=== PATIENT | male | born 1990 | race African-American/Black ===

== ENCOUNTER 2017-11-26 22:18 | Emergency (ER) | payer SELFPAY ==
--- NOTE | 2017-11-26 22:43 | EDM.PDOC ---
ED HPI GENERAL MEDICAL PROBLEM - General Chief Complaint: ENT Problem Stated Complaint: TOOTH PAIN Time Seen by Provider: 11/26/17 22:36 Source of Information: Reports: Patient History Limitations: Reports: No Limitations - History of Present Illness INITIAL COMMENTS - FREE TEXT/NARRATIVE: The patient presents with right upper jaw tooth pain. This has been going on for a few weeks. The pain will come and go. It has been constant for a couple days. He has no fever or chills. He has no dentist in town. Onset: Gradual Duration: Week(s): (2) Location: Reports: Other (dental pain) Quality: Reports: Sharp Severity: Moderate Improves with: Reports: None Worsens with: Reports: None Associated Symptoms: Reports: No Other Symptoms Tooth/Teeth Pain Score (Numeric/FACES): 9 - Related Data Allergies Allergy/AdvReac Type Severity Reaction Status Date / Time No Known Allergies Allergy Verified 11/26/17 22:28 Home Meds: Home Meds Elviteg/Rosette/Emtric/Tenofo Ala [Genvoya Tablet] 1 each PO DAILY 11/26/17 [ History] Past Medical History - Past Health History Medical/Surgical History: Denies Medical/Surgical History Social & Family History - Family History Family Medical History: Noncontributory - Tobacco Use Smoking Status *Q: Current Every Day Smoker Years of Tobacco use: 15 Packs/Tins Daily: 0.5 - Caffeine Use Caffeine Use: Reports: Coffee, Energy Drinks, Soda - Recreational Drug Use Recreational Drug Use: No ED ROS ENT - Review of Systems Review Of Systems: See Below Constitutional: Reports: No Symptoms HEENT: Reports: Dental Pain Respiratory: Reports: No Symptoms Cardiovascular: Reports: No Symptoms Endocrine: Reports: No Symptoms GI/Abdominal: Reports: No Symptoms : Reports: No Symptoms Musculoskeletal: Reports: No Symptoms ED EXAM, ENT - Physical Exam Exam: See Below Exam Limited By: No Limitations General Appearance: Alert, No Apparent Distress Ears: Normal External Exam Nose: Normal Inspection Mouth/Throat: Dental Abcess, Dental Pain, Other (Pain upon palpation with edema and erythema to the right upper gum line at the 1st molar) Head: Atraumatic, Normocephalic Neck: Normal Inspection, Supple, Non-Tender Respiratory/Chest: No Respiratory Distress Course - Vital Signs Last Recorded V/S: Last Vital Signs Temp 97.7 F 11/26/17 22:29 Pulse 71 11/26/17 22:29 Resp 16 11/26/17 22:29 BP 145/97 H 11/26/17 22:29 Pulse Ox 100 11/26/17 22:29 Departure - Departure Time of Disposition: 22:45 Disposition: Home, Self-Care 01 Condition: Good Clinical Impression: Dental abscess, Dental caries, Pain, dental - Discharge Information *PRESCRIPTION DRUG MONITORING PROGRAM REVIEWED*: No *COPY OF PRESCRIPTION DRUG MONITORING REPORT IN PATIENT DELVIS: No Referrals: PCP,Not In Area [Primary Care Provider] - Additional Instructions: Take the medication as prescribed. Follow up with a dentist in town. Please return if you are worse.
== END 2017-11-26 22:50 | disposition home or self-care (01) ==
LOC: JD.ED 22:18
DX: K04.7 Periapical abscess without sinus (principal); K02.9 Dental caries, unspecified; F17.210 Nicotine dependence, cigarettes, uncomplicated
CPT/HCPCS: 99283

== ENCOUNTER 2018-06-13 11:17 | Emergency (ER) | payer BC ==
--- NOTE | 2018-06-13 11:46 | EDM.PDOC ---
ED HPI GENERAL MEDICAL PROBLEM - General Chief Complaint: General Stated Complaint: MEDICATION REFILL Time Seen by Provider: 06/13/18 11:38 Source of Information: Reports: Patient History Limitations: Reports: No Limitations - History of Present Illness INITIAL COMMENTS - FREE TEXT/NARRATIVE: 28-year-old male presents to the ED for a refill of his antiviral medications that he takes for his HIV infection. He was diagnosed with HIV in January 2016. He was started on antiviral medication at that time. His CD4 count apparently came under excellent control. He's had troubles getting his medications filled due to the cost. It costs nearly $2700 a month for current Genvoya tablet once daily. He has moved here from [place] to work in the [employer] field. He is asymptomatic with no cough fever chills etc. I will have his white count checked and CD4 count checked. He is essentially here for medication refill Onset: Other (Diagnosed with HIV infection January 2016) Duration: Chronic Location: Reports: Other (HIV positive. Asymptomatic) Quality: Reports: Other (None.) Improves with: Reports: None Worsens with: Reports: None Context: Reports: Other (HIV positive since January 2016). 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: Reports: Other (see below) - Related Data Allergies Allergy/AdvReac Type Severity Reaction Status Date / Time No Known Allergies Allergy Verified 06/13/18 11:26 Home Meds: Home Meds Elviteg/Rosette/Emtric/Tenofo Ala [Genvoya Tablet] 1 each PO DAILY 11/26/17 [ History] Elviteg/Rosette/Emtric/Tenofo Ala [Genvoya Tablet] 1 each PO DAILY #30 tablet 06/13 [Rx] Past Medical History - Past Health History Medical/Surgical History: Denies Medical/Surgical History - Infectious Disease History Infectious Disease History: Reports: HIV-Human Immunodeficiency Virus ( Diagnosed in January 2016 and he's been on retroviral therapy since. He has missed a couple of months of treatment due to being without enough funds to afford the medication. Has been off the current treatment with Genvoya which contains 4 different antiviral retroviral medications. For the last month. He is here to essentially get it filled since he has money.) Social & Family History - Family History Family Medical History: Noncontributory - Tobacco Use Smoking Status *Q: Current Every Day Smoker Years of Tobacco use: 20 Packs/Tins Daily: 0.5 - Caffeine Use Caffeine Use: Reports: Energy Drinks - Alcohol Use Days Per Week of Alcohol Use: 0 - Recreational Drug Use Recreational Drug Use: No - Living Situation & Occupation Living situation: Reports: Single ED ROS GENERAL - Review of Systems Review Of Systems: See Below Constitutional: Denies: Fever, Chills, Malaise, Weakness, Fatigue, Decreased Appetite, Weight Loss HEENT: Reports: No Symptoms Respiratory: Reports: No Symptoms Cardiovascular: Reports: No Symptoms Endocrine: Reports: No Symptoms GI/Abdominal: Reports: No Symptoms : Reports: No Symptoms Musculoskeletal: Reports: No Symptoms Skin: Reports: No Symptoms, Other Psychiatric: Reports: No Symptoms Hematologic/Lymphatic: Reports: No Symptoms Immunologic: Reports: Other (Patient has HIV infection.) ED EXAM, GENERAL - Physical Exam Exam: See Below Exam Limited By: No Limitations General Appearance: Alert, WD/WN, No Apparent Distress Eye Exam: Bilateral Eye: Normal Inspection Throat/Mouth: Normal Inspection, Normal Lips, Normal Oropharynx Head: Atraumatic, Normocephalic Neck: Normal Inspection, Supple, Non-Tender, Full Range of Motion. No: Lymphadenopathy (L), Lymphadenopathy (R) Respiratory/Chest: No Respiratory Distress, Lungs Clear, Normal Breath Sounds, No Accessory Muscle Use Cardiovascular: Normal Peripheral Pulses, Regular Rate, Rhythm, No Edema, No Gallop, No Murmur, No Rub Peripheral Pulses: 0: Popliteal (L) Course - Vital Signs Last Recorded V/S: Last Vital Signs Temp 36.7 C 06/13/18 11:27 Pulse 76 06/13/18 11:27 Resp 16 06/13/18 11:27 BP 154/97 H 06/13/18 11:27 Pulse Ox 100 06/13/18 11:27 - Orders/Labs/Meds Labs: Laboratory Tests 06/13/18 Range/Units 11:51 WBC 4.66 (4.23-9.07) K/mm3 RBC 5.23 (4.63-6.08) M/mm3 Hgb 14.6 (13.7-17.5) gm/L Hct 40.9 (40.1-51.0) % MCV 78.2 L (79.0-92.2) fl MCH 27.9 (25.7-32.2) pg MCHC 35.7 H (32.2-35.5) g/dl RDW Std Deviation 43.3 (35.1-43.9) fL Plt Count 209 (163-337) K/mm3 MPV 9.5 (9.4-12.3) fl Neutrophils % (Manual) 56 (40-60) % Band Neutrophils % 0 (0-10) % Lymphocytes % (Manual) 33 (20-40) % Atypical Lymphs % 0 % Monocytes % (Manual) 10 (2-10) % Eosinophils % (Manual) 1 (0.8-7.0) % Basophils % (Manual) 0 L (0.2-1.2) Platelet Estimate Adequate RBC Morph Comment Normal - Radiology Interpretation Free Text/Narrative:: 28-year-old male presents to the ED primarily for refill of his antiviral/ retroviral medications for HIV infection. He was diagnosed with HIV the end of January 2016. He's been on antiviral medications/retroviral medication for most of this time. He has been without medication a couple of months because of lack of funds to purchase medication. He is currently on genvoya--a combination of 4 different medications. Takes 1 tablet once daily. He states it's safe to resume even though he's been off of it for a month. Plan CBC to be done with CD4 count to be sent out. I will refill his medication for the next 4 months. 1 tablet once daily Departure - Departure Time of Disposition: 12:00 Disposition: Home, Self-Care 01 Condition: Fair Clinical Impression: HIV (human immunodeficiency virus infection) Qualifiers: HIV symptom status: asymptomatic Qualified Code(s): Z21 - Asymptomatic human immunodeficiency virus [HIV] infection status - Discharge Information *PRESCRIPTION DRUG MONITORING PROGRAM REVIEWED*: Not Applicable *COPY OF PRESCRIPTION DRUG MONITORING REPORT IN PATIENT DELVIS: Not Applicable Prescriptions: Elviteg/Rosette/Emtric/Tenofo Ala [Genvoya Tablet] 1 each PO DAILY #30 tablet Referrals: PCP,None [Primary Care Provider] - Forms: ED Department Discharge Additional Instructions: Evaluation the emergency room today in regards to known HIV infection and need for refill of antiviral medication Genvoya. Labs will be drawn today and CD4 count will be available in about 3-4 days. Tentatively someone will call from the department with the results when they become available likely Friday or next week. I have refilled her medication for the next 4 months
== END 2018-06-13 12:05 | disposition home or self-care (01) ==
LOC: JD.ED 11:17
DX: Z21 Asymptomatic human immunodeficiency virus [HIV] infection status (principal); F17.210 Nicotine dependence, cigarettes, uncomplicated; Z79.899 Other long term (current) drug therapy
CPT/HCPCS: 36415; 85007; 85027; 99282; 99283